=== PATIENT | female | born 1960 | race Caucasian/White ===

== ENCOUNTER → 2017-01-13 | Outpatient (CLI) | payer BC ==
[~2017-01-13] MED LIST: B COMPLEX1 TA2 PO; CALCIUM1 CAP PO; ETODOLAC400 MG PO; MOTRIN PO; MULTIPLE VITAMI1 CAP PO
== END ==
LOC: MC.RAD 08:20
DX: Z12.31 Encounter for screening mammogram for malignant neoplasm of breast (principal)

== ENCOUNTER → 2019-02-08 | Outpatient (CLI) | payer BC | LOC: MC.RAD 16:00 | DX: Z12.31 Encounter for screening mammogram for malignant neoplasm of breast (principal) ==

== ENCOUNTER → 2020-08-05 | Outpatient (CLI) | payer BC | LOC: MC.RAD 16:05 | DX: Z12.31 Encounter for screening mammogram for malignant neoplasm of breast (principal); Z68.21 Body mass index [BMI] 21.0-21.9, adult ==